=== PATIENT | female | born 1950 | race Two or more races ===

== ENCOUNTER 2024-02-03 05:32 | Day surgery (SDC) | payer OTHER ==
[~2024-02-03 05:32] MED LIST: AMBIEN5 MG; LEVOTHYROXINE13 MCG; LOTREL 10-20 M1 EACH; TRIJARDY XR 101 EACH; XANAX0.25 MG
[2024-02-03] MEDS ORDERED: LIDOCAINE HCL 1%/EPINEPHRINE 20ML VIAL IJ ONE (08:45)
[2024-02-03] MEDS ORDERED: CEFAZOLIN SODIUM 1,000 MG VIAL IV ONE (08:45)
[2024-02-03] MEDS ORDERED: CHLORHEXIDINE GLUCONATE 240 ML BOTTLE TOP ONE (08:45)
[2024-02-03] MEDS ORDERED: VANCOMYCIN HCL 1,000 MG VIAL IR ONE (08:45)
[2024-02-03] MEDS ORDERED: CIPRO250 MG PO (10:29)
[2024-02-03] MEDS ORDERED: OXYBUTYNIN CHLOR5 MG PO (10:30)
[2024-02-03] MEDS ORDERED: TRAM1TAB98 PO (10:31)
== END 2024-02-03 14:10 | disposition home or self-care (01) ==
LOC: CIR.AMB 05:32
PROVIDERS: ATTEND Obstetrics & Gynecology Gynecology
DX: N82.0 Vesicovaginal fistula (principal); I10 Essential (primary) hypertension; E11.9 Type 2 diabetes mellitus without complications; E03.9 Hypothyroidism, unspecified; R32 Unspecified urinary incontinence